=== PATIENT | female | born 1940 | race Caucasian/White ===

== ENCOUNTER → 2019-06-27 | Outpatient (CLI) | payer MEDICARE, BC | END | disposition home or self-care (01) | LOC: RADNMMAIN 08:44 | PROVIDERS: ATTEND Family Medicine | DX: Z53.9 Procedure and treatment not carried out, unspecified reason (principal) ==

== ENCOUNTER → 2019-07-18 | Outpatient (CLI) | payer MEDICARE, BC ==
--- NOTE | 2019-07-20 10:21 | NM ---
EXAMINATION TYPE: NM thyroid image w uptake DATE OF EXAM: 07/19/2019 COMPARISON: NONE HISTORY: Thyroid nodule per order. Abnormal physical exam. Symptoms of irritability, insomnia, and in creased appetite per patient. TECHNIQUE: Thyroid iodine uptake is calculated and images performed after the oral administration of 315 uCi 1-123 Capsule. FINDINGS: There is fairly homogeneous distribution of activity throughout the gland. The 4 hour iodi ne uptake is calculated at 7% (normal range 8-14%) slightly diminished from the normal range. The 24- hour iodine uptake is calculated at 15%, lower limits of normal (normal range 15-35%). IMPRESSION: Normal thyroid scan. Uptake is felt lower limits of normal.
== END | disposition home or self-care (01) ==
LOC: RADNMMAIN 08:40
PROVIDERS: ATTEND Family Medicine
DX: E04.1 Nontoxic single thyroid nodule (principal)
CPT/HCPCS: 78014; A9516

== ENCOUNTER → 2019-10-09 | Outpatient (CLI) | payer MEDICARE, BC ==
[2019-10-09 16:37] LABS: African American GFR (CKD) >90 (>60 ml/min/1.73 sqM); Blood Urea Nitrogen 14 mg/dL (7-17); Non-African American GFR(CKD) 87 (>60 ml/min/1.73 sqM)
--- NOTE | 2019-10-10 08:09 | CT ---
EXAMINATION TYPE: CT soft tissue neck w con DATE OF EXAM: 10/09/2019 COMPARISON: 07/18/2019 thyroid nuclear medicine scan HISTORY: Rt neck mass, pt not able to identify location, family hx thyroid ca. CT DLP: 335 mGycm CONTRAST: Patient injected with 100 mL of Isovue 300. TECHNIQUE: Axial images at 3 mm thick sections. Reconstructed images in the coronal plane and sagitt al plane are reviewed. FINDINGS: Limited CT sections are obtained the lung apices. The lung apices appear clear. CT neck: The torus tubarius and fossa of Rosenmuller are normal. [employer] spaces are normal. Mini mal mucosal thickenings within maxillary sinuses and left ethmoid air cells. Remaining visualized par anasal sinuses are clear. Small amount of fluid is within the lateral left mastoid air cells. Parotid glands appear normal and symmetrical. Submandibular glands, are normal. Parapharyngeal spac es are normal. No suspicious adenopathy is evident. Beam hardening artifact from dental amalgam is present. The hypopharynx appears within normal limits. Vocal cord level appear symmetrical. Thyroid contains an enhancing lesion with central low density measuring approximately 1.6 cm on the l eft lobe thyroid. Right lobe thyroid is enlarged with an irregular hypodensity within the mid right l obe thyroid. Right lobe thyroid extends inferiorly to the suprasternal notch. Additional evaluation w ith ultrasound is recommended. Osseous structures are normal. Degenerative disc changes and loss of disc height are noted within the cervical spine. IMPRESSIONS: 1. Enlarged thyroid or so on the right with irregular hypodensity within the thyroid lobes. Additiona l evaluation with ultrasound is recommended.
== END | disposition home or self-care (01) ==
LOC: RADCTMAIN 15:46
PROVIDERS: ATTEND Family Medicine
DX: E04.9 Nontoxic goiter, unspecified (principal); R93.89 Abnormal findings on diagnostic imaging of other specified body structures; Z80.8 Family history of malignant neoplasm of other organs or systems
CPT/HCPCS: 82565; 84520; 70491; 36415; Q9967